=== PATIENT | female | born 1960 | race Caucasian/White ===

== ENCOUNTER → 2025-07-22 | Outpatient (CLI) | payer OTHER ==
--- NOTE | 2025-07-23 06:45 | HMCIMG ---
STUDY MR right upper extremity without IV contrast, shoulder CLINICAL HISTORY Shoulder pain TECHNIQUE Multisequence, multiplanar magnetic resonance images of the right shoulder without intravenous contrast COMPARISON None provided FINDINGS Rotator cuff tendons Partial-thickness articular-surface tear of the supraspinatus tendon at the critical zone, involving approximately 6070 percent of tendon thickness, without full-thickness defect or significant tendon retraction. Background supraspinatus tendinosis is present. Infraspinatus and subscapularis tendons show tendinosis with increased intrasubstance signal but no discrete partial- or full-thickness tear. Teres minor tendon is intact. Bursae and joint fluid Minimal fluid in the subacromialsubdeltoid bursa, compatible with mild reactive bursitis rather than gross distension. Minimal effusion is also seen in the superior subscapularis recess and along the bicipital groove, likely reflecting low-grade joint-related fluid tracking rather than primary bicipital tenosynovitis. Glenohumeral joint effusion is not significantly distended on the sequences provided. Acromioclavicular joint and coracoacromial arch Moderate acromioclavicular osteoarthritis with joint-space narrowing, marginal osteophytes, capsular hypertrophy, and mild subchondral marrow oedema. There is mild impression on the underlying supraspinatus myotendinous junction, without high-grade bursal distension, indicating outlet narrowing with early impingement effect. The acromion demonstrates a type III hooked configuration, further contributing to subacromial outlet compromise. Biceps tendon and ave Long head of biceps tendon is maintained within the bicipital groove without tear or subluxation. No definite ave disruption is identified. Glenohumeral joint, labrum, and cartilage Glenohumeral joint alignment is preserved. No displaced labral tear or focal chondral defect is described on the provided sequences. Muscles and other soft tissues Rotator cuff and periscapular muscles demonstrate normal bulk without fatty atrophy or denervation edema. No soft tissue mass is identified. IMPRESSION * High-grade partial-thickness articular-surface tear of the supraspinatus tendon at the critical zone involving approximately 6070 percent of tendon thickness on a background of rotator cuff tendinosis, representing structurally significant cuff pathology that can explain pain and weakness and is of potential surgical relevance, particularly given the outlet morphology. * Moderate acromioclavicular joint osteoarthritis with type III hooked acromion and mild impression on the supraspinatus myotendinous junction, creating a subacromial outlet narrowing and impingement configuration that likely contributes to the supraspinatus tear and symptoms. * Subscapularis and infraspinatus tendinosis without discrete partial- or full-thickness tear, with minimal reactive fluid in the subacromialsubdeltoid bursa, superior subscapularis recess, and along the bicipital groove, consistent with low-grade bursal and joint-related fluid rather than advanced bursitis or biceps ave failure. /Dawes
== END | disposition home or self-care (01) ==
LOC: RAH 13:30
PROVIDERS: ATTEND Student in an Organized Health Care Education/Training Program
DX: M75.111 Incomplete rotator cuff tear or rupture of right shoulder, not specified as traumatic (principal); M75.42 Impingement syndrome of left shoulder; M19.011 Primary osteoarthritis, right shoulder; M25.811 Other specified joint disorders, right shoulder; M67.813 Other specified disorders of tendon, right shoulder
CPT/HCPCS: 73221